=== PATIENT | female | born 1995 | race Hispanic/Latino ===

== ENCOUNTER 2017-09-27 20:45 | Emergency (ER) | payer OTHER, BC ==
[2017-09-27 20:54] VITALS: BP 119/79; PULSE 72; RESP 18; TEMP 97.5; O2SAT 97
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
--- NOTE | 2017-09-28 09:50 | RAD ---
PROCEDURE: Cervical Spine Radiographs. HISTORY: Pain. COMPARISON: None. FINDINGS: BONES: Alignment maintained. No fracture. Dens Intact. DISC SPACES: Normal. SOFT TISSUES: Normal. No prevertebral soft tissue swelling. OTHER FINDINGS: None. IMPRESSION: Normal cervical spine radiographs
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
== END 2017-09-27 23:16 | disposition home or self-care (01) ==
LOC: ED 20:45
DX: Z04.1 Encounter for examination and observation following transport accident (principal); V43.52XA Car driver injured in collision with other type car in traffic accident, initial encounter; Y92.410 Unspecified street and highway as the place of occurrence of the external cause

== ENCOUNTER 2018-10-17 02:10 | Inpatient (IN) | payer BC, OTHER ==
--- NOTE | 2018-10-17 02:17 | ED PDOC ---
Arrival/HPI - General Chief Complaint: Abdominal Pain Time Seen by Provider: 10/17/18 02:11 Historian: Patient, EMS - History of Present Illness Narrative History of Present Illness (Text): 10/17/18 02:17 Kacie Romero is a 23 year old female who presents to the Emergency department complaining of generalized abdominal pain tonight. Patient reports associated nausea and vomiting. Patient denies any fever, chills, chest pain, shortness of breath, diarrhea, urinary symptoms, back pain, neck pain, headache, dizziness, or any other complaints. Symptom Onset: Gradual Symptom Course: Unchanged Activities at Onset: Light Context: Home Past Medical History - Provider Review Nursing Documentation Reviewed: Yes - Past History Past History: Non-Contributing - Infectious Disease Hx of Infectious Diseases: None - Hematological/Oncological Hx Anemia: Yes - Psychiatric Hx Substance Use: Yes - Surgical History Hx Dilation and Curettage: Yes - Anesthesia Hx Anesthesia: Yes Hx Anesthesia Reactions: No Hx Malignant Hyperthermia: No Family/Social History - Physician Review Nursing Documentation Reviewed: Yes Family/Social History: Unknown Family HX Smoking Status: Never Smoked Hx Alcohol Use: Yes Hx Substance Use: Yes Substance used: marijuana Allergies/Home Meds Allergies/Adverse Reactions: Allergies lactose Allergy (Mild, Verified 10/18/18 14:09) NAUSEA plum Allergy (Verified 10/17/18 02:13) RASH Home Medications: Home Meds Medication Instructions Recorded Confirmed No Known Home Med 10/17/18 10/17/18 Review of Systems - Physician Review All systems were reviewed & negative as marked: Yes - Review of Systems Constitutional: Normal. absent: Fevers Eyes: Normal ENT: Normal Respiratory: Normal. absent: SOB, Cough Cardiovascular: Normal. absent: Chest Pain Gastrointestinal: Abdominal Pain, Nausea, Vomiting Genitourinary Female: Normal. absent: Dysuria, Frequency, Urine Output Changes, Other Musculoskeletal: Normal. absent: Back Pain, Neck Pain Skin: Normal. absent: Rash Neurological: Normal Endocrine: Normal Hemo/Lymphatic: Normal Psychiatric: Normal Physical Exam Vital Signs Reviewed: Yes Vital Signs Temp Pulse Resp BP Pulse Ox 10/17/18 02:13 97.5 F L 77 18 101/58 L 98 Temperature: Afebrile Blood Pressure: Normal Pulse: Regular Respiratory Rate: Normal Appearance: Positive for: Well-Appearing, Non-Toxic, Comfortable Pain Distress: None Mental Status: Positive for: Alert and Oriented X 3 - Systems Exam Head: Present: Atraumatic, Normocephalic Pupils: Present: PERRL Extroacular Muscles: Present: EOMI Conjunctiva: Present: Normal Mouth: Present: Moist Mucous Membranes Neck: Present: Normal Range of Motion Respiratory/Chest: Present: Clear to Auscultation, Good Air Exchange. No: Respiratory Distress, Accessory Muscle Use Cardiovascular: Present: Regular Rate and Rhythm, Normal S1, S2. No: Murmurs Abdomen: No: Tenderness, Distention, Peritoneal Signs Back: Present: Normal Inspection Upper Extremity: Present: Normal Inspection. No: Cyanosis, Edema Lower Extremity: Present: Normal Inspection. No: Edema Neurological: Present: GCS=15, CN II-XII Intact, Speech Normal Skin: Present: Warm, Dry, Normal Color. No: Rashes Psychiatric: Present: Alert, Oriented x 3, Normal Insight, Normal Concentration Medical Decision Making ED Course and Treatment: 10/17/18 02:17 Impression: 23 year old female complaining of generalized abdominal pain, nausea, and vomiting. Plan: -- Labs, lipase -- Urinalysis -- IV fluids -- Zofran -- Reassess and disposition Prior Visits: Notes and results from previous visits were reviewed. Progress Notes: 10/17/18 05:29 CT Abdomen and Pelvis: Fluid-filled bowels. The liver is of uniform attenuation without mass or defect. There is no intra or extrahepatic biliary ductal dilatation. The spleen is normal. The gallbladder is within normal limits. The pancreas is of normal contour and attenuation characteristics. There is no evidence of adrenal mass. Both kidneys demonstrate prompt and equal nephrograms. The kidneys are normal in size, shape and configuration. There is no evidence of renal or ureteral mass. No renal or ureteral calculi are identified. There is no hydroureter or hydronephrosis. No evidence for appendicitis. No evidence for small or large bowel obstruction. There is no evidence of abdominal ascites or lymphadenopathy. There is no evidnce of intrinsic or extrinsic bladder mass. There is no pelvic ascites or lymphadenopathy. Images of the lung bases show no evidence of pleural or parenchymal mass. There are no pleural effusions. The bony structures are free of lytic or blastic lesions. IMPRESSION: Uncomplicated enteritis. Thank you for your kind referral of this patient. Electronically signed on Oct 17, 2018 5:27:28 AM EDT by: Tanner Son M.D., Certified by ABR, MSK, Neuroradiology case d/w dr nieto accepts case - Lab Interpretations I have reviewed the lab results: Yes - RAD Interpretation Firearms Specialist: Radiologist - Darellibmarti Statement The provider has reviewed the documentation as recorded by the Scribe Shani Rivera Provider Scribe Attestation: All medical record entries made by the Scribe were at my direction and personally dictated by me. I have reviewed the chart and agree that the record accurately reflects my personal performance of the history, physical exam, medi elaine decision making, and the department course for this patient. I have also personally directed, reviewed, and agree with the discharge instructions and disposition. Disposition/Present on Arrival - Present on Arrival Any Indicators Present on Arrival: No History of DVT/PE: No History of Uncontrolled Diabetes: No Urinary Catheter: No History of Decub. Ulcer: No History Surgical Site Infection Following: None - Disposition Have Diagnosis and Disposition been Completed?: Yes Diagnosis: Abdominal pain Disposition: HOSPITALIZED Disposition Time: 07:00 Condition: GOOD
[2018-10-17] MEDS ORDERED: Sodium Chloride 0.9% 1,000 ML IV STA ×2 (02:18→06:28)
[2018-10-17 02:48] LABS: BASO # 0.03 K/mm3 (0.0-2.0); BASO % 0.1 % (0.0-3.0); EOS # 0.1 (0.0-0.7); EOS % 0.4 % (1.5-5.0); HEMOGLOBIN 13.2 g/dL (12.0-16.0); MEAN CELL VOLUME 89.7 fl (80.0-105.0); MEAN CORPUSCULAR HEMOGLOBIN 30.3 pg (25.0-35.0); MEAN CORPUSCULAR HGB CONC 33.8 g/dl (31.0-37.0); MEAN PLATELET VOLUME 9.8 fl (7.0-11.0); MONO # 0.5 (0.1-0.6); MONO % 2.5 % (1.0-6.0); RBC 4.36 10^6/uL (3.5-6.1); RED CELL DISTRIBUTION WIDTH 12.5 % (11.5-14.5)
[2018-10-17 02:50] LABS: ALB/GLOB RATIO 1.2 (1.1-1.8); ALBUMIN 4.4 g/dL (3.0-4.8); ALT/SGPT 21 U/L (7-56); AST/SGOT 38 U/L (14-36); BLOOD UREA NITROGEN 23 mg/dL (7-21); CALCIUM 9.5 mg/dL (8.4-10.5); GFR NON-AFRICAN AMERICAN > 60; INR 1.09; LIPASE 144 U/L (23-300); PARTIAL THROMBOPLASTIN TIME 26.2 Seconds (26.9-38.3); PROTHROMBIN TIME 12.1 SECONDS (9.4-12.5)
[2018-10-17] MEDS ORDERED: Iohexol 350 MG/100 ML VIAL ONE (03:23)
[2018-10-17 03:24] LABS: URINE BILIRUBIN NEGATIVE (NEGATIVE); URINE BLOOD NEGATIVE (NEGATIVE); URINE GLUCOSE (UA) NEGATIVE (NEGATIVE); URINE LEUKOCYTE ESTERASE NEGATIVE Leu/uL (NEGATIVE); URINE PROTEIN NEGATIVE mg/dL (<30 mg/dL); URINE UROBILINOGEN 0.2 E.U./dL (<1 E.U./dL)
[2018-10-17 03:26] LABS: URINE APPEARANCE CLEAR (CLEAR); URINE COLOR YELLOW (YELLOW)
[2018-10-17] MEDS: Sodium Chloride 0.9% 1,000 ML IV SCH ×2 (06:12→06:26)
[2018-10-17] MEDS ORDERED: metroNIDAZOLE IV 500 mg/100 ml 500 MG/100 ML BAG IVPB STA (06:28)
--- NOTE | 2018-10-17 07:09 | CP.PCM.CON ---
<Delfina Whitlock - Last Filed: 10/17/18 10:07> History of Present Illness - History of Present Illness History of Present Illness: Delfina Whitlock, PGY2, GI Consult Note for Dr Bo: CC: vomiting, headache, abdominal pain This is a 23 year old female with PMH migraines, anxiety, is here for vomiting, abdominal pain. Patient states that it started yesterday around midnight. Patient reports that around 12:30 [place], patient starting having blurry vision, headache, with subsequent large amounts of vomiting that lasted 1.5 hours. Initially, it was food, then transitioned to bilious vomit, reports no blood. Patient also reports having one regular bowel movement at the time, no syncope, incontinence. Patient also reports diffuse achy abdominal pain, started from periumbilical area, reports 10/10 initially at onset. Patient states that she had her regular foods before that (pineapple and cooked salmon in the morning). Patient reports a "sensitive stomach" all her life, and therefore has been avoiding dairy products and gluten. Denies fevers, chills, diarrhea, sick contacts, neck pain, cough, urinary symptoms. Patient states that she had a similar less severe episode 2 weeks ago, where she had vomiting lasting entire day, which subsided on its own. She went to PMD then, had blood work, which was all normal. No prior EGD/c-scopy. In ED, patient mildly hypotensive 80s/50's, wbc 20 with predominant neuts, given 2 L NS bolus, flagyl, zofran 4 mg iV x2. Currently, patient reports improved nausea and abdominal pain. Reports ongoing headache. 12 point ROS obtained and negative, except as per HPI. PMD Pappert PMH: migraines (diagnosed as a teenager), anxiety, panic attacks PSH: none ALL: plums (hives) home med: MVT, folic acid, collagen, probiotic, xanax 0.5 mg prn SocialHx: social ETOH, denies tobacco use. no recreational drugs. Lives with sisters and grandma. Works at [employer]. Review of Systems - Review of Systems All systems: reviewed and no additional remarkable complaints except Review of Systems: as per HPI Past Patient History - Infectious Disease Hx of Infectious Diseases: None - Past Social History Smoking Status: Never Smoked - HEMATOLOGICAL/ONCOLOGICAL Hx Anemia: Yes - PSYCHIATRIC Hx Substance Use: Yes - SURGICAL HISTORY Hx Dilation and Curettage: Yes - ANESTHESIA Hx Anesthesia: Yes Hx Anesthesia Reactions: No Hx Malignant Hyperthermia: No Meds Allergies/Adverse Reactions: Allergies Allergy/AdvReac Type Severity Reaction Status Date / Time plum Allergy RASH Verified 10/17/18 02:13 - Medications Medications: Current Medications Acetaminophen (Tylenol 325mg Tab) 650 mg PO Q4H PRN PRN Reason: Fever >100.5 F Sodium Chloride (Sodium Chloride 0.9%) 1,000 mls @ 1,000 mls/hr IV .Q1H VITALY Last Admin: 10/17/18 06:26 Dose: 1,000 mls/hr Metronidazole (Flagyl) 500 mg in 100 mls @ 100 mls/hr IVPB STAT STA; Protocol Stop: 10/17/18 07:27 Sodium Chloride (Sodium Chloride 0.9%) 1,000 mls @ 100 mls/hr IV .Q10H STA Stop: 10/17/18 16:27 Ondansetron HCl (Zofran Inj) 4 mg IVP Q6H PRN PRN Reason: Nausea/Vomiting Physical Exam - Constitutional Appears: Non-toxic, No Acute Distress - Head Exam Head Exam: ATRAUMATIC, NORMOCEPHALIC - Eye Exam Eye Exam: EOMI, PERRL. absent: Conjunctival injection, Nystagmus, Scleral icterus Pupil Exam: NORMAL ACCOMODATION, PERRL. absent: Irregular, Miosis, Unequal - ENT Exam ENT Exam: Mucous Membranes Dry - Neck Exam Neck exam: Positive for: Full Rom - Respiratory Exam Respiratory Exam: Clear to Auscultation Bilateral, NORMAL BREATHING PATTERN. absent: Accessory Muscle Use, Rhonchi, Wheezes - Cardiovascular Exam Cardiovascular Exam: RRR, +S1, +S2. absent: Systolic Murmur - GI/Abdominal Exam GI & Abdominal Exam: Normal Bowel Sounds, Soft, Tenderness (Moderate TTP diffusely on deep palpation, more in LUQ and LLQ). absent: Bruit, Distended, Firm, Mass, Organomegaly, Rebound, Rigid - Extremities Exam Extremities exam: Positive for: normal inspection. Negative for: calf tenderness, pedal edema - Back Exam Back exam: NORMAL INSPECTION - Neurological Exam Neurological exam: Alert, Oriented x3 - Psychiatric Exam Psychiatric exam: Normal Affect, Normal Mood - Skin Skin Exam: Dry, Normal Color, Warm Results - Vital Signs Recent Vital Signs: Last Vital Signs Temp 97.5 F L 10/17/18 02:13 Pulse 75 10/17/18 05:33 Resp 16 10/17/18 05:33 BP 89/57 L 10/17/18 05:33 Pulse Ox 100 10/17/18 05:33 - Labs Result Diagrams: 10/17/18 02:25 10/17/18 02:25 Labs: Laboratory Results - last 24 hr 10/17/18 10/17/18 10/17/18 02:25 02:25 02:25 WBC 20.0 H RBC 4.36 Hgb 13.2 Hct 39.1 MCV 89.7 MCH 30.3 MCHC 33.8 RDW 12.5 Plt Count 271 MPV 9.8 Neut % (Auto) 87.0 H Lymph % (Auto) 10.0 L [place] % (Auto) 2.5 Eos % (Auto) 0.4 L Baso % (Auto) 0.1 Lymph # (Auto) 2.0 [place] # (Auto) 0.5 Eos # (Auto) 0.1 Baso # (Auto) 0.03 Absolute Neuts (auto) 17.39 H PT 12.1 INR 1.09 APTT 26.2 L Sodium 139 Potassium 4.2 Chloride 100 Carbon Dioxide 30 Anion Gap 13 BUN 23 H Creatinine 0.7 Est GFR ( Amer) > 60 Est GFR (Non-Af Amer) > 60 Random Glucose 120 H Calcium 9.5 Magnesium 1.9 Total Bilirubin 0.3 AST 38 H ALT 21 Alkaline Phosphatase 59 Total Protein 8.2 Albumin 4.4 Globulin 3.8 Albumin/Globulin Ratio 1.2 Lipase 144 Urine Color Urine Appearance Urine pH Ur Specific [place] Urine Protein Urine Glucose (UA) Urine Ketones Urine Blood Urine Nitrate Urine Bilirubin Urine Urobilinogen Ur Leukocyte Esterase Influenza Typ A,B (EIA) 10/17/18 10/17/18 03:04 04:17 WBC RBC Hgb Hct MCV MCH MCHC RDW Plt Count MPV Neut % (Auto) Lymph % (Auto) [place] % (Auto) Eos % (Auto) Baso % (Auto) Lymph # (Auto) [place] # (Auto) Eos # (Auto) Baso # (Auto) Absolute Neuts (auto) PT INR APTT Sodium Potassium Chloride Carbon Dioxide Anion Gap BUN Creatinine Est GFR ( Amer) Est GFR (Non-Af Amer) Random Glucose Calcium Magnesium Total Bilirubin AST ALT Alkaline Phosphatase Total Protein Albumin Globulin Albumin/Globulin Ratio Lipase Urine Color Yellow Urine Appearance Clear Urine pH 6.0 Ur Specific [place] >= 1.030 Urine Protein Negative Urine Glucose (UA) Negative Urine Ketones Negative Urine Blood Negative Urine Nitrate Negative Urine Bilirubin Negative Urine Urobilinogen 0.2 Ur Leukocyte Esterase Negative Influenza Typ A,B (EIA) Negative for flu a/b Assessment & Plan - Assessment and Plan (Free Text) Assessment: # Abdominal pain, vomiting 2/2 bacterial gastroenteritis vs IBD vs celiac diseas e # Headaches, blurry vision # Migraines # Anxiety - CT Abdomen and Pelvis showed uncomplicated enteritis. Fluid-filled bowels. No evidence for small or large bowel obstruction. No appendicitis. - NPO for now. Can advance to [facility] in afternoon if less nauseous. - levaquin and flagyl - IVF - c/w zofran prn nausea, tylenol prn headache - Recommend neurology evaluation for headaches, blurry vision - will order celiac disease profile, IBD serology - continue to monitor. Patient seen and discussed with Dr Bo. <Marielena Bo V - Last Filed: 10/17/18 19:14> Meds - Medications Medications: Current Medications Acetaminophen (Tylenol 325mg Tab) 650 mg PO Q4H PRN PRN Reason: Fever >100.5 F Acetaminophen/Butalbital/Caffeine (Fioricet) 1 tab PO Q8 VITALY Stop: 10/19/18 16:00 Last Admin: 10/17/18 14:21 Dose: 1 tab Sodium Chloride (Sodium Chloride 0.9%) 1,000 mls @ 1,000 mls/hr IV .Q1H VITALY Last Admin: 10/17/18 06:26 Dose: 1,000 mls/hr Metronidazole (Flagyl) 500 mg in 100 mls @ 100 mls/hr IVPB Q8 VITALY; Protocol Last Admin: 10/17/18 16:18 Dose: 100 mls/hr Levofloxacin/Dextrose (Levaquin 750mg) 750 mg in 150 mls @ 100 mls/hr IVPB DAILY VITALY; Protocol Last Admin: 10/17/18 10:21 Dose: 100 mls/hr Valproate Sodium 500 mg/ (Sodium Chloride) 105 mls @ 100 mls/hr IVPB Q8 VITALY Last Admin: 10/17/18 17:35 Dose: 100 mls/hr Ondansetron HCl (Zofran Inj) 4 mg IVP Q6H PRN PRN Reason: Nausea/Vomiting Results - Vital Signs Recent Vital Signs: Last Vital Signs Temp 97.2 F L 10/17/18 17:35 Pulse 63 10/17/18 17:35 Resp 20 10/17/18 17:35 BP 94/55 L 10/17/18 17:35 Pulse Ox 99 10/17/18 08:38 - Labs Result Diagrams: 10/17/18 02:25 10/17/18 02:25 Labs: Laboratory Results - last 24 hr 10/17/18 10/17/18 10/17/18 02:25 02:25 02:25 WBC 20.0 H RBC 4.36 Hgb 13.2 Hct 39.1 MCV 89.7 MCH 30.3 MCHC 33.8 RDW 12.5 Plt Count 271 MPV 9.8 Neut % (Auto) 87.0 H Lymph % (Auto) 10.0 L [place] % (Auto) 2.5 Eos % (Auto) 0.4 L Baso % (Auto) 0.1 Lymph # (Auto) 2.0 [place] # (Auto) 0.5 Eos # (Auto) 0.1 Baso # (Auto) 0.03 Absolute Neuts (auto) 17.39 H PT 12.1 INR 1.09 APTT 26.2 L pO2 VBG pH VBG pCO2 VBG HCO3 VBG Total CO2 VBG O2 Sat (Calc) VBG Base Excess VBG Potassium Glucose Lactate FiO2 Sodium 139 Potassium 4.2 Chloride 100 Carbon Dioxide 30 Anion Gap 13 BUN 23 H Creatinine 0.7 Est GFR ( Amer) > 60 Est GFR (Non-Af Amer) > 60 Random Glucose 120 H Calcium 9.5 Magnesium 1.9 Total Bilirubin 0.3 AST 38 H ALT 21 Alkaline Phosphatase 59 Total Protein 8.2 Albumin 4.4 Globulin 3.8 Albumin/Globulin Ratio 1.2 Lipase 144 Venous Blood Potassium Urine Color Urine Appearance Urine pH Ur Specific [place] Urine Protein Urine Glucose (UA) Urine Ketones Urine Blood Urine Nitrate Urine Bilirubin Urine Urobilinogen Ur Leukocyte Esterase IgA Influenza Typ A,B (EIA) 10/17/18 10/17/18 10/17/18 03:04 04:17 07:25 WBC RBC Hgb Hct MCV MCH MCHC RDW Plt Count MPV Neut % (Auto) Lymph % (Auto) [place] % (Auto) Eos % (Auto) Baso % (Auto) Lymph # (Auto) [place] # (Auto) Eos # (Auto) Baso # (Auto) Absolute Neuts (auto) PT INR APTT pO2 42 VBG pH 7.27 L VBG pCO2 53.0 VBG HCO3 24.3 VBG Total CO2 25.9 VBG O2 Sat (Calc) 78.9 H VBG Base Excess -3.3 L VBG Potassium 4.1 Glucose 84 Lactate 0.7 FiO2 21.0 Sodium 140.0 Potassium Chloride 110.0 H Carbon Dioxide Anion Gap BUN Creatinine Est GFR ( Amer) Est GFR (Non-Af Amer) Random Glucose Calcium Magnesium Total Bilirubin AST ALT Alkaline Phosphatase Total Protein Albumin Globulin Albumin/Globulin Ratio Lipase Venous Blood Potassium 4.1 Urine Color Yellow Urine Appearance Clear Urine pH 6.0 Ur Specific [place] >= 1.030 Urine Protein Negative Urine Glucose (UA) Negative Urine Ketones Negative Urine Blood Negative Urine Nitrate Negative Urine Bilirubin Negative Urine Urobilinogen 0.2 Ur Leukocyte Esterase Negative IgA Influenza Typ A,B (EIA) Negative for flu a/b 10/17/18 11:20 WBC RBC Hgb Hct MCV MCH MCHC RDW Plt Count MPV Neut % (Auto) Lymph % (Auto) [place] % (Auto) Eos % (Auto) Baso % (Auto) Lymph # (Auto) [place] # (Auto) Eos # (Auto) Baso # (Auto) Absolute Neuts (auto) PT INR APTT pO2 VBG pH VBG pCO2 VBG HCO3 VBG Total CO2 VBG O2 Sat (Calc) VBG Base Excess VBG Potassium Glucose Lactate FiO2 Sodium Potassium Chloride Carbon Dioxide Anion Gap BUN Creatinine Est GFR ( Amer) Est GFR (Non-Af Amer) Random Glucose Calcium Magnesium Total Bilirubin AST ALT Alkaline Phosphatase Total Protein Albumin Globulin Albumin/Globulin Ratio Lipase Venous Blood Potassium Urine Color Urine Appearance Urine pH Ur Specific [place] Urine Protein Urine Glucose (UA) Urine Ketones Urine Blood Urine Nitrate Urine Bilirubin Urine Urobilinogen Ur Leukocyte Esterase IgA 143.7 Influenza Typ A,B (EIA) Attending/Attestation - Attestation I have personally seen and examined this patient.: Yes I have fully participated in the care of the patient.: Yes I have reviewed all pertinent clinical information: Yes Notes (Text): This patient was seen and evaluated earlier along with the hospital medical biller. This is an addendum to the GI consultation report dictated by the resident. This patient is admitted with nausea vomiting and abdominal pain. Patient has a history of migraine headache before. The CT scan was reviewed suggestive of ent eritis. Clinically more in favor of gastroenteritis. Differential diagnosis would include inflammatory bowel disease Patient's white cell count is elevated. On physical exam patient does have mild diffuse tenderness in the abdomen. No diarrhea. Would start the patient on Levaquin and Flagyl. Neurological evaluation Continue IV fluids We will start the patient on clear liquid if no further episodes of nausea vomiting Discussed with the doctor Dr. Xavier. 10/17/18 19:09
[2018-10-17 07:36] LABS: VENOUS BLOOD GAS BASE EXCESS -3.3 mmol/L (0.0-2.0); VENOUS BLOOD GAS PO2 42 mm/Hg (30-55); VENOUS BLOOD PH 7.27 (7.32-7.43)
--- NOTE | 2018-10-17 09:47 | CT ---
Date of service: 10/17/2018 PROCEDURE: CT Abdomen and Pelvis with contrast HISTORY: abd pain COMPARISON: Not available TECHNIQUE: Contrast dose: 100 mL Omnipaque 350 Radiation dose: Total exam DLP = 204.2 mGy-cm. This CT exam was performed using one or more of the following dose reduction techniques: Automated exposure control, adjustment of the mA and/or kV according to patient size, and/or use of iterative reconstruction technique. FINDINGS: LOWER THORAX: Unremarkable. LIVER: Unremarkable. No gross lesion or ductal dilatation. GALLBLADDER AND BILE DUCTS: Unremarkable. PANCREAS: Unremarkable. No gross lesion or ductal dilatation. SPLEEN: Unremarkable. ADRENALS: Unremarkable. No mass. KIDNEYS AND URETERS: Unremarkable. No hydronephrosis. No solid mass. VASCULATURE: Unremarkable. No aortic aneurysm. No aortic atherosclerotic calcification or mural plaque present. BOWEL: Unremarkable. No obstruction. No gross mural thickening. APPENDIX: Not identified. No secondary findings. PERITONEUM: Unremarkable. No free fluid. No free air. LYMPH NODES: Unremarkable. No enlarged lymph nodes. BLADDER: Nondistended REPRODUCTIVE: Normal uterus BONES: No acute fracture OTHER FINDINGS: None. IMPRESSION: Unremarkable abdominal/pelvic CT examination. The preliminary findings for this examination were reported by [facility] at 5:27 a.m. on 10/17/2018. There is discordance of this report with the preliminary findings. There is no evidence of enteritis at this time.
[2018-10-17] MEDS: levoFLOXacin 750 mg in D5W 750 MG/150 ML BAG IVPB SCH (10:21)
[2018-10-17] MEDS ORDERED: Magnesium Sulfate 1 gm in D5W 1 GM/100 ML BAG IVPB ONE (13:04)
--- NOTE | 2018-10-17 13:06 | CP.PCM.PCO ---
Physician Communication Note - Physician Communication Note Physician Communication Note: for worsening migraine, gave 1 dose of IV depacon/dexamethson/magsulphate.
[2018-10-17] MEDS ORDERED: Dexamethasone 4 mg/1 ml ONE (13:55)
[2018-10-17] MEDS: Apap-Butalbital-Caffeine 325-50-40mg Tab PO SCH ×2 (14:21→21:38)
--- NOTE | 2018-10-17 15:21 | CT ---
Date of service: 10/17/2018 PROCEDURE: CT HEAD WITHOUT CONTRAST. HISTORY: migraine headache COMPARISON: None available. TECHNIQUE: Axial computed tomography images were obtained through the head/brain without intravenous contrast. Radiation dose: Total exam DLP = 922.74 mGy-cm. This CT exam was performed using one or more of the following dose reduction techniques: Automated exposure control, adjustment of the mA and/or kV according to patient size, and/or use of iterative reconstruction technique. FINDINGS: HEMORRHAGE: No intracranial hemorrhage. BRAIN: No mass effect or edema. No atrophy or chronic microvascular ischemic changes. VENTRICLES: Unremarkable. No hydrocephalus. CALVARIUM: Unremarkable. PARANASAL SINUSES: Unremarkable as visualized. No significant inflammatory changes. MASTOID AIR CELLS: Unremarkable as visualized. No inflammatory changes. OTHER FINDINGS: None. IMPRESSION: Normal CT of the Head. No intracranial mass, hemorrhage or evidence of acute infarct.
[2018-10-17] MEDS: metroNIDAZOLE IV 500 mg/100 ml 500 MG/100 ML BAG IVPB SCH ×2 (16:18→21:38)
--- NOTE | 2018-10-17 16:22 | CARD ---
APPROVED REPORT Date of service: 10/17/2018 EKG Measurement Heart [id number] <Conclusion> Normal sinus rhythm with sinus arrhythmia Low voltage QRS
[2018-10-17] MEDS: Valproate 500 MG in Sodium Chloride 0.9% 100 ML IVPB SCH ×2 (17:35→21:37)
--- NOTE | 2018-10-17 21:25 | CON ---
DATE: 10/17/2018 HISTORY OF PRESENT ILLNESS: This is a 23-year-old female with past medical history of anxiety and migraine who came with vomiting and abdominal pain and also having blurring of vision, headache, and large amounts of vomiting and called her mom and brought her to [facility] emergency room and called to evaluate the patient for migraine headaches. PAST MEDICAL HISTORY: Migraine, anxiety, and panic attacks. ALLERGIES: ALLERGIC TO PLUMS. SOCIAL HISTORY: Does not smoke and drinks occasionally. Lives with sister and grandma. REVIEW OF SYSTEMS: A 10-point review of systems was negative. PHYSICAL EXAMINATION: VITAL SIGNS: Blood pressure 89/57. HEENT: Normocephalic and atraumatic. NECK: Supple. NEUROLOGIC: Alert, awake, and oriented x3. Cranial nerves II through XII are tested. Pupils reactive. EOM intact. Visual field full. No facial asymmetry. Tongue midline. Motor examination; moves all the extremities equally. Tone normal. Deep tendon reflexes 1+. Both plantars are downgoing. Sensory appears intact. Cerebellar gait deferred. LABORATORY DATA: WBC 20, hemoglobin 13.2, hematocrit 39.1, and platelet 271. Sodium 139, potassium 4.2, chloride 100, CO2 of 30, glucose 120, BUN 23, and creatinine 0.7. We ordered the CAT scan of the head without contrast. IMPRESSION AND PLAN: Migraine headaches, abdominal pain, nausea, and vomiting. Fioricet one every 8 hours. Continue present management. We will follow up. Sree Boswell MD
--- NOTE | 2018-10-18 00:15 | HP ---
DATE OF EXAM: 10/17/2018 The patient was seen and examined at the bedside, 10/17/2018. CHIEF COMPLAINT: Abdominal pain, nausea, and vomiting. HISTORY OF PRESENT ILLNESS: Ms. Kacie Romero is a 23-year-old female presented to the emergency department complaining about generalized abdominal pain. The patient reports associated nausea and vomiting. The patient denies fever, chills, chest pain, shortness of breath, diarrhea, urinary symptoms, back pain, neck pain, headache, dizziness, but when I saw the patient, she was complaining about headache. We admitted the patient, give hydration, GI consult called and discussion done with Dr. Bo. PAST MEDICAL HISTORY: Anemia and history of D and C. FAMILY HISTORY: Father and mother noncontributory. HABITS: Never smoked. Alcohol; yes. Substance abuse; yes. Substance use is marijuana. ALLERGIES: THE PATIENT IS ALLERGIC WITH PLUM. HOME MEDICATIONS: Refused. REVIEW OF SYSTEMS: The patient was seen and examined at the bedside in the telemetry, looking comfortable. No fever. No chills. No hematuria. No hematochezia. Headache, yes. PHYSICAL EXAMINATION: VITAL SIGNS: Temperature 97.2, pulse 67, blood pressure 94/54, and respiratory rate 20. HEENT: Head; normocephalic and atraumatic. Eyes; PERRLA. Extraocular muscles intact. Conjunctivae clear. Nose patent. Mucous membranes moist. NECK: Supple. No carotid bruits. No JVD. No thyromegaly. CHEST: Bilaterally symmetrical. HEART: S1 and S2 positive. LUNGS: Clear to auscultation. ABDOMEN: Soft. Bowel sounds present. No organomegaly. EXTREMITIES: No edema. No cyanosis. NEUROLOGIC: The patient is awake and alert. Moving all four extremities. No focal deficits. LABORATORY DATA: White blood cell 20, hemoglobin 13.2, hematocrit 39.1, and platelets 271. Sodium 139, potassium 4.2, BUN 23, creatinine 0.7, glucose 120, and AST 38. ASSESSMENT AND PLAN: Ms. Kacie Romero is a 23-year-old female with leukocytosis, anemia, increased BUN, looks like dehydrated, hyperglycemia, and abnormal liver function test. Influenza type A and B is negative. Admitted for intractable nausea, vomiting, abdominal pain, and has headache. CAT scan of the head done, normal CT of the head, no intracranial mass, hemorrhage or evidence of acute infarction. Seen by Dr. Boswell for migraine. The patient has history of migraine, anxiety, and panic attack. She came with abdominal pain, nausea and vomiting, Fioricet given every [address] Boswell. Appreciated communication report of Dr. Otilio Boswell. The patient has worsening migraine, give one dose of Depacon/dexamethasone. Seen by Dr. Bo. Discussion done with Dr. Bo. In emergency department, the patient was mildly hypotensive, got 2 L nasal saline bolus, Flagyl, and Zofran. When I saw the patient has still nausea, abdominal pain was better. Started the patient on clear liquid diet. We will repeat labs. Advance diet as tolerated. According to gastrointestinal, the patient has still gastroenteritis versus irritable bowel syndrome versus celiac disease. CT of abdomen and pelvis showed uncomplicated enteritis, fluid-filled bowel, no evidence of small or large bowel obstruction. Got Levaquin and Flagyl. Continue IV fluid. Gastrointestinal and deep vein thrombosis prophylaxis. Repeat labs. We will follow up. Ijeoma Xavier MD MTDSharon
[2018-10-18] MEDS: Valproate 500 MG in Sodium Chloride 0.9% 100 ML IVPB SCH ×3 (05:16→22:14)
[2018-10-18] MEDS: metroNIDAZOLE IV 500 mg/100 ml 500 MG/100 ML BAG IVPB SCH ×3 (05:19→22:15)
[2018-10-18] MEDS: Sodium Chloride 0.9% 1,000 ML IV SCH ×2 (05:20→10:19)
[2018-10-18] MEDS: Apap-Butalbital-Caffeine 325-50-40mg Tab PO SCH ×3 (05:24→22:15)
[2018-10-18 06:57] LABS: HEMOGLOBIN 11.3 g/dL (12.0-16.0); MEAN CELL VOLUME 90.5 fl (80.0-105.0); MEAN CORPUSCULAR HGB CONC 32.1 g/dl (31.0-37.0); MEAN PLATELET VOLUME 10.2 fl (7.0-11.0); RBC 3.89 10^6/uL (3.5-6.1)
[2018-10-18 07:09] LABS: BLOOD UREA NITROGEN 9 mg/dL (7-21); CALCIUM 9.3 mg/dL (8.4-10.5); GFR NON-AFRICAN AMERICAN > 60
[2018-10-18] MEDS: levoFLOXacin 750 mg in D5W 750 MG/150 ML BAG IVPB SCH (09:33)
--- NOTE | 2018-10-18 12:29 | CP.PCM.PN ---
<Delfina Whitlock - Last Filed: 10/18/18 15:49> Subjective - Date & Time of Evaluation Date of Evaluation: 10/18/18 Time of Evaluation: 10:00 - Subjective Subjective: Delfina Whitlock, PGY2, GI Progress Note for Dr Bo: Patient seen and examined at bedside. No acute events overnight. Patient reports feeling mild nausea earlier this morning, relieved with zofran. Patient reports improving headache, after seen by Neuro yesterday. Patient had CLD yesterday for dinner, with mild abdominal discomfort post meal. States that she would like to keep CLD for breakfast, then advance if tolerated. No BM overnight, passing gas. Objective - Vital Signs/Intake and Output Vital Signs (last 24 hours): Temp Pulse Resp BP Pulse Ox 98.6 F 69 18 90/52 L 98 10/18/18 12:00 10/18/18 12:00 10/18/18 12:00 10/18/18 12:00 10/18/18 09:00 Intake and Output: 10/18/18 10/18/18 06:59 18:59 Intake Total 2800 Balance 2800 - Medications Medications: Current Medications Acetaminophen (Tylenol 325mg Tab) 650 mg PO Q4H PRN PRN Reason: Fever >100.5 F Acetaminophen/Butalbital/Caffeine (Fioricet) 1 tab PO Q8 VITALY Stop: 10/19/18 16:00 Last Admin: 10/18/18 05:24 Dose: 1 tab Metronidazole (Flagyl) 500 mg in 100 mls @ 100 mls/hr IVPB Q8 VITALY; Protocol Last Admin: 10/18/18 05:19 Dose: 100 mls/hr Levofloxacin/Dextrose (Levaquin 750mg) 750 mg in 150 mls @ 100 mls/hr IVPB D AILY VITALY; Protocol Last Admin: 10/18/18 09:33 Dose: 100 mls/hr Valproate Sodium 500 mg/ (Sodium Chloride) 105 mls @ 100 mls/hr IVPB Q8 VITALY Last Admin: 10/18/18 05:16 Dose: 100 mls/hr Sodium Chloride (Sodium Chloride 0.9%) 1,000 mls @ 50 mls/hr IV .Q20H VITALY Last Admin: 10/18/18 10:19 Dose: 50 mls/hr Ondansetron HCl (Zofran Inj) 4 mg IVP Q6H PRN PRN Reason: Nausea/Vomiting Last Admin: 10/18/18 06:05 Dose: 4 mg - Labs Labs: 10/18/18 06:00 10/18/18 06:00 PT 12.1 SECONDS (9.4-12.5) 10/17/18 02:25 INR 1.09 10/17/18 02:25 APTT 26.2 Seconds (26.9-38.3) L 10/17/18 02:25 - Additional Findings Additional findings: - Constitutional Appears: Non-toxic, No Acute Distress - Head Exam Head Exam: ATRAUMATIC, NORMOCEPHALIC - Eye Exam Eye Exam: EOMI, PERRL. absent: Conjunctival injection, Nystagmus, Scleral icterus Pupil Exam: NORMAL ACCOMODATION, PERRL. absent: Irregular, Miosis, Unequal - ENT Exam ENT Exam: Mucous Membranes Dry - Neck Exam Neck exam: Positive for: Full Rom - Respiratory Exam Respiratory Exam: Clear to Auscultation Bilateral, NORMAL BREATHING PATTERN. absent: Accessory Muscle Use, Rhonchi, Wheezes - Cardiovascular Exam Cardiovascular Exam: RRR, +S1, +S2. absent: Systolic Murmur - GI/Abdominal Exam GI & Abdominal Exam: Normal Bowel Sounds, Soft, Tenderness (Mild TTP diffusely on deep palpation, more in LUQ and LLQ). absent: Bruit, Distended, Firm, Mass, Organomegaly, Rebound, Rigid - Extremities Exam Extremities exam: Positive for: normal inspection. Negative for: calf tenderness, pedal edema - Back Exam Back exam: NORMAL INSPECTION - Neurological Exam Neurological exam: Alert, Oriented x3 - Psychiatric Exam Psychiatric exam: Normal Affect, Normal Mood - Skin Skin Exam: Dry, Normal Color, Warm Assessment and Plan - Assessment and Plan (Free Text) Assessment: # Abdominal pain, vomiting 2/2 bacterial gastroenteritis vs IBD vs celiac disease # Headaches, blurry vision # Migraines # Anxiety - CT Abdomen and Pelvis showed uncomplicated enteritis. Fluid-filled bowels. No evidence for small or large bowel obstruction. No appendicitis. - CLD, can advance diet as tolerated. - wbc normal this AM - levaquin and flagyl - can wean off IVF of tolerating PO diet - c/w zofran prn nausea, tylenol prn headache - Appreciate neurology recs. - Ig A normal, f/u rest of IBD, celiac disease profile labs - continue to monitor. Patient seen and discussed with Dr Bo. <Marielena Bo V - Last Filed: 10/18/18 19:10> Objective - Vital Signs/Intake and Output Vital Signs (last 24 hours): Temp Pulse Resp BP Pulse Ox 98.4 F 60 21 99/0 L 98 10/18/18 18:00 10/18/18 18:00 10/18/18 18:00 10/18/18 18:00 10/18/18 09:00 Intake and Output: 10/18/18 10/19/18 18:59 06:59 Intake Total 900 Balance 900 - Medications Medications: Current Medications Acetaminophen (Tylenol 325mg Tab) 650 mg PO Q4H PRN PRN Reason: Fever >100.5 F Acetaminophen/Butalbital/Caffeine (Fioricet) 1 tab PO Q8 VITALY Stop: 10/19/18 16:00 Last Admin: 10/18/18 13:42 Dose: Not Given Metronidazole (Flagyl) 500 mg in 100 mls @ 100 mls/hr IVPB Q8 VITALY; Protocol Last Admin: 10/18/18 13:42 Dose: 100 mls/hr Levofloxacin/Dextrose (Levaquin 750mg) 750 mg in 150 mls @ 100 mls/hr IVPB DAILY VITALY; Protocol Last Admin: 10/18/18 09:33 Dose: 100 mls/hr Valproate Sodium 500 mg/ (Sodium Chloride) 105 mls @ 100 mls/hr IVPB Q8 VITALY Last Admin: 10/18/18 14:53 Dose: 100 mls/hr Sodium Chloride (Sodium Chloride 0.9%) 1,000 mls @ 50 mls/hr IV .Q20H VITALY Last Admin: 10/18/18 10:19 Dose: 50 mls/hr Ondansetron HCl (Zofran Inj) 4 mg IVP Q6H PRN PRN Reason: Nausea/Vomiting Last Admin: 10/18/18 06:05 Dose: 4 mg Pantoprazole Sodium (Protonix Ec Tab) 20 mg PO 0600,1600 VITALY Last Admin: 10/18/18 15:51 Dose: 20 mg - Labs Labs: 10/18/18 06:00 10/18/18 06:00 PT 12.1 SECONDS (9.4-12.5) 10/17/18 02:25 INR 1.09 10/17/18 02:25 APTT 26.2 Seconds (26.9-38.3) L 10/17/18 02:25 Attending/Attestation - Attestation I have personally seen and examined this patient.: Yes I have fully participated in the care of the patient.: Yes I have reviewed all pertinent clinical information, including history, physical exam and plan: Yes Notes (Text): This is an addendum to the GI progress report dictated by the medical cash poster. Patient was seen and evaluated here earlier. Clinically feeling much better on clear liquid diet will advance the diet as tolerated. WBC count shows downward trend . clinically patient has enteritis on antibiotics would continue with that and complete the course. Patient would need elective GI evaluation Neurological follow-up for migraine Thank you Dr. Xavier for allowing us to participate in the care of the patient. We will continue to closely follow-up her care and suggest further recommendation based on the clinical course 10/18/18 19:08
[2018-10-18] MEDS: Pantoprazole 20 mg EC Tab PO SCH (15:51)
--- NOTE | 2018-10-19 05:17 | CP.PCM.PN ---
Subjective - Date & Time of Evaluation Date of Evaluation: 10/19/18 Time of Evaluation: 05:16 - Subjective Subjective: S: It was requested to order Xanax for patient. Patient feels anxious. Has no other complaints. O:VSS LUNGS: Normal breathing pattern. Little restless. A:Anxious. P:Xanax 0.5 mg PO x 1 Objective - Vital Signs/Intake and Output Vital Signs (last 24 hours): Temp Pulse Resp BP Pulse Ox 98.2 F 62 20 93/55 L 98 10/19/18 00:01 10/19/18 02:00 10/19/18 00:01 10/19/18 00:01 10/19/18 00:01 Intake and Output: 10/18/18 10/19/18 18:59 06:59 Intake Total 900 Balance 900 - Medications Medications: Current Medications Acetaminophen (Tylenol 325mg Tab) 650 mg PO Q4H PRN PRN Reason: Fever >100.5 F Acetaminophen/Butalbital/Caffeine (Fioricet) 1 tab PO Q8 VITALY Stop: 10/19/18 16:00 Last Admin: 10/18/18 22:15 Dose: 1 tab Metronidazole (Flagyl) 500 mg in 100 mls @ 100 mls/hr IVPB Q8 VITALY; Protocol Last Admin: 10/18/18 22:15 Dose: 100 mls/hr Levofloxacin/Dextrose (Levaquin 750mg) 750 mg in 150 mls @ 100 mls/hr IVPB DAILY VITALY; Protocol Last Admin: 10/18/18 09:33 Dose: 100 mls/hr Valproate Sodium 500 mg/ (Sodium Chloride) 105 mls @ 100 mls/hr IVPB Q8 VITALY Last Admin: 10/18/18 22:14 Dose: 100 mls/hr Sodium Chloride (Sodium Chloride 0.9%) 1,000 mls @ 50 mls/hr IV .Q20H VITALY Last Admin: 10/18/18 10:19 Dose: 50 mls/hr Ondansetron HCl (Zofran Inj) 4 mg IVP Q6H PRN PRN Reason: Nausea/Vomiting Last Admin: 10/18/18 06:05 Dose: 4 mg Pantoprazole Sodium (Protonix Ec Tab) 20 mg PO 0600,1600 VITALY Last Admin: 10/18/18 15:51 Dose: 20 mg - Labs Labs: 10/18/18 06:00 10/18/18 06:00 PT 12.1 SECONDS (9.4-12.5) 10/17/18 02:25 INR 1.09 10/17/18 02:25 APTT 26.2 Seconds (26.9-38.3) L 10/17/18 02:25
[2018-10-19] MEDS: Valproate 500 MG in Sodium Chloride 0.9% 100 ML IVPB SCH ×3 (06:23→21:00)
[2018-10-19] MEDS: metroNIDAZOLE IV 500 mg/100 ml 500 MG/100 ML BAG IVPB SCH ×3 (06:23→22:13)
[2018-10-19] MEDS: Pantoprazole 20 mg EC Tab PO SCH ×3 (06:24→16:16)
[2018-10-19] MEDS: Apap-Butalbital-Caffeine 325-50-40mg Tab PO SCH ×4 (06:24→14:37)
[2018-10-19] MEDS: Sodium Chloride 0.9% 1,000 ML IV SCH ×2 (07:47)
[2018-10-19] MEDS: levoFLOXacin 750 mg in D5W 750 MG/150 ML BAG IVPB SCH (09:30)
[2018-10-19 11:48] LABS: BLOOD UREA NITROGEN 9 mg/dL (7-21); CALCIUM 8.9 mg/dL (8.4-10.5); GFR NON-AFRICAN AMERICAN > 60; HDL CHOLESTEROL 53 mg/dL (29-60)
[2018-10-19 11:59] LABS: LDL CHOLESTEROL 72 mg/dL (0-129)
[2018-10-19 12:08] LABS: IRON 97 ug/dL (45-180)
[2018-10-19 12:17] LABS: % IRON SATURATION 41 % (20-55); TOTAL IRON BINDING CAPACITY 237 ug/dL (265-497)
[2018-10-19] MEDS ORDERED: Apap-Butalbital-Caffeine 325-50-40mg Tab PO PRN (21:14)
[2018-10-19 22:40] LABS: FOLATE 19.3 ng/mL
--- NOTE | 2018-10-20 00:59 | PN ---
DATE: 10/19/2018 SUBJECTIVE: This patient was seen and evaluated earlier today. The patient is tolerating the diet. PHYSICAL EXAMINATION: VITAL SIGNS: Temperature is 98.1, pulse 97, blood pressure is 94/58. HEENT: Atraumatic, anicteric. NECK: Supple. HEART: S1, S2 regular. LUNGS: Bilateral air entry present. ABDOMEN: Soft. No significant tenderness now. EXTREMITIES: No edema, no cyanosis. NEUROLOGIC: Alert and oriented. Moves all the extremities. LABORATORY DATA: Hemoglobin 11.3, hematocrit 35.2, WBC 6, platelets 249. BUN 9, creatinine 0.8. IMPRESSION: This 23-year-old patient was admitted with nausea, vomiting and also abdominal pain, history of migraine. Patient's white cell count was 20,000 on admission. Patient is on empiric antibiotics with Levaquin and Flagyl. Patient is tolerating the diet. Diet has been slowly increased. The etiology for the enteritis is unclear. Differential diagnosis should include gastroenteritis and inflammatory bowel disease also should be considered. Patient has been following gluten free diet and also history of lactose intolerance. Requested for a celiac disease profile, but results still pending. Patient had an episode of abdominal discomfort in the last few weeks with two episodes like the present episode but mild.. It is reasonable to even rule out inflammatory bowel disease in her case. Patient would complete the antibiotic course, and need Gastroenterology evaluation including endoscopy and also colonoscopy based on the clinical course as an outpatient. Patient is to continue the neurological followup for migraine. Thank you very much for allowing me to participate in the care of the patient. Marielena Bo MD [facility]
--- NOTE | 2018-10-20 02:24 | PN ---
DATE: 10/19/2018 SUBJECTIVE: The patient is a 23-year-old female. The patient was seen and examined on the bedside on 10/19/2018, looking comfortable. Actually in the morning, the patient took her breakfast and done lunch, after lunch, she started feeling nauseousness and cannot control, we had to give her Zofran. I put the patient again on full liquid diet, stop soft diet. Otherwise, the patient is also having headache, Fioricet given. No fever, no chills. No hematemesis, no hematochezia. PHYSICAL EXAMINATION: VITAL SIGNS: Temperature 98.1, pulse 97, blood pressure 94/58, and respiratory rate 18. HEENT: Head is normocephalic and atraumatic. Eyes; PERRLA. Extraocular muscles are intact. Conjunctivae are clear. Nose patent. Mucous membrane moist. NECK: Supple. No carotid bruits. No JVD or thyromegaly. CHEST: Bilaterally symmetrical. HEART: S1 and S2 positive. LUNGS: Clear to auscultation. ABDOMEN: Soft. Bowel sounds present. No organomegaly. EXTREMITIES: No edema. No cyanosis. NEUROLOGIC: The patient is awake and alert. Moving all four extremities. No focal deficits. MEDICATIONS: Fioricet, Flagyl, Levaquin, Protonix, Tylenol, valproic acid, and Zoloft. LABORATORY DATA: White blood cells is 6.0 and on admission it was 20, hemoglobin 13, hematocrit 35.2, and platelets 248. Sodium 138, potassium 3.8, BUN 9, and creatinine 0.8. TIBC 237. ASSESSMENT AND PLAN: Ms. Kacie Romero is a 23-year-old lady with anemia, came with migraine intractable headache. CAT scan of the head. Neurology consult called. She had abdominal pain with vomiting. According to Gastrointestinal, gastroenteritis versus irritable bowel syndrome versus celiac disease. Headache with blurring of vision and anxiety. The patient is on Levaquin and Flagyl, getting Zofran, getting medication for migraine. We will continue present treatment. Gastrointestinal and deep vein thrombosis prophylaxis. Repeat labs. We will follow up. Ijeoma Xavier MD [facility]
[2018-10-20] MEDS: Pantoprazole 20 mg EC Tab PO SCH ×2 (06:37→16:12)
[2018-10-20] MEDS: Valproate 500 MG in Sodium Chloride 0.9% 100 ML IVPB SCH ×2 (06:37→13:21)
[2018-10-20] MEDS: metroNIDAZOLE IV 500 mg/100 ml 500 MG/100 ML BAG IVPB SCH ×2 (06:37→13:21)
[2018-10-20 07:39] LABS: HEMOGLOBIN 11.4 g/dL (12.0-16.0); MEAN CELL VOLUME 89.3 fl (80.0-105.0); MEAN CORPUSCULAR HEMOGLOBIN 29.2 pg (25.0-35.0); MEAN CORPUSCULAR HGB CONC 32.7 g/dl (31.0-37.0); MEAN PLATELET VOLUME 10.2 fl (7.0-11.0); RBC 3.91 10^6/uL (3.5-6.1); RED CELL DISTRIBUTION WIDTH 12.8 % (11.5-14.5); WHITE BLOOD COUNT 5.4 10^3/uL (4.5-11.0)
[2018-10-20 08:30] LABS: BLOOD UREA NITROGEN 12 mg/dL (7-21); CALCIUM 9.2 mg/dL (8.4-10.5); GFR NON-AFRICAN AMERICAN > 60
[2018-10-20] MEDS: levoFLOXacin 750 mg in D5W 750 MG/150 ML BAG IVPB SCH (09:39)
[2018-10-20 14:34] VITALS: BP 83/51; PULSE 86; RESP 18; TEMP 98; O2SAT 99
--- NOTE | 2018-10-21 00:26 | PN ---
DATE: 10/20/2018 SUBJECTIVE: This patient was seen earlier today. The patient is tolerating her diet. No bowel movements vomiting. Her abdominal discomfort has significantly improved. PHYSICAL EXAMINATION: VITAL SIGNS: Afebrile, blood pressure was 83/51, pulse 61, and O2 saturation is 99%. HEENT: Atraumatic. Anicteric. NECK: Supple. HEART: S1 and S2. LUNGS: Bilateral air entry present. ABDOMEN: Soft. There is no significant tenderness at the present time. EXTREMITIES: No cyanosis. No clubbing. NEUROLOGIC: Alert and oriented. Moves all the extremities. LABORATORY DATA: Hemoglobin 11.4, hematocrit 34.9, WBC 5.4, and platelets 227. Chemistry shows essentially unremarkable. The patient had IBD serology done, which showed ASCA was normal. ANCA still pending. Celiac disease profile is still pending. IMPRESSION AND PLAN: This 23-year-old patient is admitted with abdominal pain and nausea. Initially, her white cell count was 20,000. CT scan showed possible enteritis. The patient has been empirically started on Levaquin and Flagyl, clinically with good improvement. Diet has been advanced. The patient has a history of gluten intolerance and also lactose intolerance. IBD serology test, ASCA was negative, pANCA pending. Celiac disease profile still pending. Celiac disease profile is still pending. The patient's diet has been advanced, tolerating. The patient does have a history of migraine. 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 The importance of followup was recommended. Thank you very much for allowing me to participate in the care of the patient. Marielena Bo MD
--- NOTE | 2018-10-21 08:54 | PN ---
DATE: 10/18/2018 SUBJECTIVE: The patient is seen and examined on the bedside on 10/18/2018. This progress note is for 10/18/2018, looking comfortable, complaining about little bit nauseousness after eating and headache. Even headache is better with medications, but still she has mild headache. Neurologist is on the case, Dr. Boswell and GI is on the case. The patient was on clear liquid diet. We advanced to full liquid for lunch, soft diet for dinner. If the patient will tolerate, then we will make further plan, but no fever, no chills. No hematuria or hematochezia. No dizziness. No palpitations. No swelling of the leg. PHYSICAL EXAMINATION: VITAL SIGNS: Temperature is 98.6, pulse 69, respiratory rate 18, blood pressure was 90/52, pulse oximetry 98. HEENT: Head: Normocephalic, atraumatic. Eyes: PERRLA. Extraocular muscles intact. Conjunctivae clear. Nose: Patent. Mucous membranes moist. NECK: Supple. No carotid bruits, JVD or thyromegaly. CHEST: Bilaterally symmetrical. HEART: S1 and S2 positive. LUNGS: Clear to auscultation. ABDOMEN: Soft. Bowel sounds present. No organomegaly. EXTREMITIES: No edema. No cyanosis. NEUROLOGICAL: The patient is awake and alert, follows simple commands. MEDICATIONS: Tylenol, Fioricet, Flagyl, Levaquin, NS, Zofran. LABORATORY DATA: White blood cell 6, hemoglobin 11.3, hematocrit 35.2, platelets 248. Sodium 141, potassium 4, BUN 9, creatinine 0.7, glucose is 95. ASSESSMENT AND PLAN: The patient is a 23-year-old lady has anemia, came with intractable nausea, vomiting, abdominal pain, headache, seen by the respiratory therapy aide. As per the respiratory therapy aide, the patient has bacterial gastroenteritis vs inflammatory bowel disease versus celiac disease. Headache with blurring of vision. According to neurologist, the patient has migraine, anxiety. CT of the abdomen and pelvis showed uncomplicated enteritis, fluid filled bowels, no evidence of small or large bowel obstruction or appendicitis. The patient is on clear liquid diet. Advanced to full liquid for lunch and soft diet for dinner as tolerated. Labs are reviewed by me. According to Gastroenterology, continue Levaquin and Flagyl. The patient was getting normal saline 100 mL per hour. I make it like 20. Continue Zofran for nauseousness, symptomatically Tylenol p.r.n. for headache. Appreciated Gastroenterology and Neurology input. Immunoglobulin A normal. Followup rest of inflammatory bowel disease and celiac disease profile. Labs are pending. Continue monitoring. Discussion done with the patient and a discussion done with the patient's nurse. Gastrointestinal and deep venous thrombosis prophylaxis. Repeat labs. We will follow up. Ijeoma Xavier MD
[2018-10-23 00:27] LABS: ANCA SCREEN POSITIVE (NEGATIVE)
== END 2018-10-20 18:17 | disposition home or self-care (01) | DRG 392 ==
LOC: ED 02:10 → ERH 06:20 → 2RNO 08:34 → OBSVTOIN 10-18 10:16 → 2RNO 10-18 17:08 → 5RNO 10-19 16:59
PROVIDERS: ADMIT Internal Medicine; ATTEND Internal Medicine
DX: K52.9 Noninfective gastroenteritis and colitis, unspecified (principal); E86.0 Dehydration; G43.919 Migraine, unspecified, intractable, without status migrainosus; E73.9 Lactose intolerance, unspecified; R73.9 Hyperglycemia, unspecified; D64.9 Anemia, unspecified; F41.0 Panic disorder [episodic paroxysmal anxiety]